=== PATIENT | female | born 1990 | race African-American/Black ===

== ENCOUNTER 2019-04-22 12:39 | Emergency (ER) | payer MEDICAID, OTHER ==
[~2019-04-22] VITALS: Ht 167.6 cm; Wt 66.0 kg
[2019-04-22] MEDS ORDERED: IBUPROFEN 600MG TABLET PO ONE (15:45)
[2019-04-22 15:57] LABS: CLARITY URINE TURBID (CLEAR); COLOR URINE YELLOW (YELLOW); KETONES URINE NEGATIVE (NEGATIVE); LEUKOCYTE ESTERASE URINE 3+ (NEGATIVE); NITRITE URINE NEGATIVE (NEGATIVE); OCCULT BLOOD URINE 2+ (NEGATIVE); PROTEIN URINE 1+ (NEGATIVE); SPECIFIC GRAVITY URINE 1.021 (1.005-1.030); UCG SCREEN NEGATIVE
[2019-04-22 16:10] VITALS: BP 109/73
== END 2019-04-22 16:25 | disposition left against medical advice (07) ==
LOC: ER 12:39
DX: N39.0 Urinary tract infection, site not specified (principal); R30.0 Dysuria; Z88.1 Allergy status to other antibiotic agents
CPT/HCPCS: 81025; 99283